=== PATIENT | female | born 1985 | race Two or more races ===

== ENCOUNTER 2020-07-05 00:37 | Emergency (ER) | payer MEDICAID ==
--- NOTE | 2020-07-05 00:54 | EDM.PDOC ---
ED HPI GENERAL MEDICAL PROBLEM - General Chief Complaint: Genitourinary Problem Stated Complaint: UTI? Time Seen by Provider: 07/05/20 00:53 Source of Information: Reports: Patient History Limitations: Reports: No Limitations - History of Present Illness INITIAL COMMENTS - FREE TEXT/NARRATIVE: Genesis is a 34-year-old female presenting to the ED for evaluation of possible urinary tract infection. Patient states that over the last 11 days she has had increased urgency, frequency, and burning with urination. She has not aware of any hematuria but she is just getting over her menses. She does not have a history for urinary tract infections. She denies any back pain, fever or chills, nausea, vomiting, or diarrhea. 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: Endocrine/Metabolic History: Reports: Obesity/BMI 30+ - Past Surgical History Female Surgical History: Reports: Section Social & Family History - Caffeine Use Caffeine Use: Reports: None ED ROS GENERAL - Review of Systems Review Of Systems: See Below Constitutional: Reports: No Symptoms HEENT: Reports: No Symptoms Respiratory: Reports: No Symptoms Cardiovascular: Reports: No Symptoms Endocrine: Reports: No Symptoms GI/Abdominal: Reports: No Symptoms : Reports: Dysuria, Frequency, Urgency Musculoskeletal: Reports: No Symptoms Skin: Reports: No Symptoms Neurological: Reports: No Symptoms Psychiatric: Reports: No Symptoms Hematologic/Lymphatic: Reports: No Symptoms Immunologic: Reports: No Symptoms ED EXAM, RENAL/ - Physical Exam Exam: See Below Exam Limited By: No Limitations General Appearance: Alert, No Apparent Distress Eye Exam: Bilateral Eye: EOMI, PERRL Head: Atraumatic, Normocephalic Neck: Normal Inspection, Supple Respiratory/Chest: No Respiratory Distress, Lungs Clear, Normal Breath Sounds Cardiovascular: Normal Peripheral Pulses, Regular Rate, Rhythm, No Murmur GI/Abdominal: Normal Bowel Sounds, Soft, Non-Tender Back Exam: Normal Inspection, Full Range of Motion. No: CVA Tenderness (R), CVA Tenderness (L) Extremities: Normal Inspection Neurological: Alert, Oriented, Normal Cognition, No Motor/Sensory Deficits Psychiatric: Normal Affect, Normal Mood Skin Exam: Warm, Dry Lymphatic: No Adenopathy Course - Vital Signs Last Recorded V/S: Last Vital Signs Temp 35.2 C L 07/05/20 00:49 Pulse 96 07/05/20 00:49 Resp 16 07/05/20 00:49 BP 144/90 H 07/05/20 00:49 Pulse Ox 96 07/05/20 00:49 - Orders/Labs/Meds Orders: Active Orders 24 hr Category Date Time Status CULTURE URINE [RM] Stat Lab 07/05/20 01:20 Ordered Labs: Laboratory Tests 07/05/20 Range/Units 00:59 Urine Color Yellow (YELLOW) Urine Appearance Turbid A (CLEAR) Urine pH 6.0 (5.0-8.0) Ur Specific [place] >= 1.030 (1.008-1.030) Urine Protein 100 H (NEGATIVE) mg/dL Urine Glucose (UA) Negative (NEGATIVE) mg/dL Urine Ketones Negative (NEGATIVE) mg/dL Urine Occult Blood Large H (NEGATIVE) Urine Nitrite Negative (NEGATIVE) Urine Bilirubin Negative (NEGATIVE) Urine Urobilinogen 0.2 (0.2-1.0) EU/dL Ur Leukocyte Esterase Moderate H (NEGATIVE) Urine RBC 0-5 (0-5) Urine WBC Packed H (0-5) Ur Epithelial Cells Rare Amorphous Sediment Not seen Urine Bacteria Many Urine Mucus Not seen - Re-Assessments/Exams Free Text/Narrative Re-Assessment/Exam: 07/05/20 01:21 I reviewed the patient's urinalysis showing jim pyuria with packed WBCs and no red cells. She does have leukocyte esterase positive. This is consistent with significant urinary tract infection. As there was no CVA tenderness, it is unlikely that she has a pyelonephritis. We will get a urine culture on her urine but in the meantime we will start her on cephalexin 500 mg 3 times daily for 7 days. A prescription for this medication was sent out to the [facility]. Patient should continue to push water to help flush the urinary tract. Indications to return to the ED were discussed and she was suitable for discharge in satisfactory condition. Departure - Departure Time of Disposition: 01:22 Disposition: Home, Self-Care 01 Clinical Impression: Urinary tract infection in female - Discharge Information Instructions: Urinary Tract Infection, Adult Referrals: PCP,None [Primary Care Provider] - Forms: ED Department Discharge Care Plan Goals: Your urinalysis shows that you have a significant urinary tract infection. We are going to start you on an antibiotic called cephalexin 500 mg 3 times a day for the next 7 days. I have sent this prescription out to the [facility] machine in the lobby so that she may start the antibiotics today. Did order a urine culture and if this shows that the organisms are resistant to this antibiotic somebody will contact you to change the antibiotic. You should continue to push fluids to help keep the urine flowing which will facilitate eliminating the bacteria. Sepsis Event Note (ED) - Evaluation Sepsis Screening Result: No Definite Risk - Focused Exam Vital Signs: Vital Signs Temp Pulse Resp BP Pulse Ox 07/05/20 00:49 35.2 C L 96 16 144/90 H 96 - Problem List & Annotations (1) Urinary tract infection in female SNOMED Code(s): 11357757, 740147746 Code(s): N39.0 - URINARY TRACT INFECTION, SITE NOT SPECIFIED Status: Acute Priority: Medium Current Visit: Yes - Problem List Review Problem List Initiated/Reviewed/Updated: Yes - My Orders Last 24 Hours: My Active Orders 07/05/20 01:20 CULTURE URINE [RM] Stat - Assessment/Plan Last 24 Hours: My Active Orders 07/05/20 01:20 CULTURE URINE [RM] Stat
[2020-07-05 01:21] VITALS: BP 144/90; PULSE 96
== END 2020-07-05 01:30 | disposition home or self-care (01) ==
LOC: JP.ED 00:37
DX: N39.0 Urinary tract infection, site not specified (principal); E66.9 Obesity, unspecified; Z68.43 Body mass index [BMI] 50.0-59.9, adult
CPT/HCPCS: 81001; 87086; 99283